=== PATIENT | female | born 1960 | race Native Hawaiian/Other Pacific Islander ===

== ENCOUNTER 2022-02-02 07:39 | Day surgery (SDC) | payer MEDICAID, SELFPAY ==
[2022-02-02] MEDS: LACTATED RINGERS 1000 ML 1,000 ML 100 ML IV (08:00)
[2022-02-02] MEDS: SODIUM CHLORIDE 0.9 % (FLUSH) 10 ML SYRINGE IVF (08:00)
[2022-02-02 08:03] VITALS: BP 130/81; PULSE 86; RESP 16; TEMP 36.6; O2SAT 97; BMI 33.9
--- NOTE | 2022-02-02 08:07 | SUR.PREOP ---
COVID HOME TEST NEGATIVE
[2022-02-02] MEDS: CEFAZOLIN 1 GM inj IVP (09:55)
[2022-02-02] MEDS: BUPIVACAINE 0.25% 30 ML INJECTION (10:15)
--- NOTE | 2022-02-02 10:16 | PM.GSPRC ---
Operative Note Date of procedure: 02/02/22 Type of Procedure: Excision of left posterior shoulder lipoma Procedure Description: After discussing the risks and benefits of the procedure, the patient signed informed consent.? The operative site was marked and the patient was brought to the operating room and placed on the operating table in supine position.? Care was taken to pad the patient's pressure points.?? The patient was then given sedation by anesthesia.?? The operative site was then prepped and draped in the usual sterile fashion.? A time-out was then performed. Local anesthetic was used to anesthetize the surgical field. A horizontal incision was made directly over the subcutaneous mass. Dissection was carried down with electrocautery. A well encapsulated mature lipoma was encountered. This was circumferentially dissected out with blunt dissection and electrocautery. The mass was removed in its entirety and sent off to pathology. The mass measured 7.5 x 5.5 x 3 cm in size. Hemostasis was assured with electrocautery. The incision was closed in layers with interrupted 3 0 Vicryl and running 4-0 Monocryl stitch. ? Sterile dressings were then applied. ? The patient was then woken and transported to the recovery area in stable condition. ? The patient tolerated the procedure well. Findings: Large lipomatous mass of the left posterior shoulder measuring 7.5 x 5.5 x 3 cm in size. Anesthesia: MAC and local Surgeon: Dulce Maria Braun MD Estimated blood loss (mL): 2 Condition: stable Disposition: same day
[2022-02-02 10:25] VITALS: BP 117/72; PULSE 65; RESP 16; TEMP 36.4; O2SAT 99
[2022-02-02 10:30] VITALS: BP 115/73; PULSE 66; RESP 16; O2SAT 98
--- NOTE | 2022-02-02 10:30 | W.ANESCHARGE ---
Anesthesia Charges Start Date/Time Anesthesia Start Date: 02/02/22 Anesthesia Start Time: 07:28 Stop Date/Time Anesthesia Stop Date: 02/02/22 Anesthesia Stop Time: 10:30 Summary Emergency: No
--- NOTE | 2022-02-02 10:34 | W.ANESCHARGE ---
Anesthesia Charges Start Date/Time Anesthesia Start Date: 02/02/22 Anesthesia Start Time: 09:45 Stop Date/Time Anesthesia Stop Date: 02/02/22 Anesthesia Stop Time: 10:29 Summary Emergency: No
[2022-02-02 10:45] VITALS: BP 113/75; PULSE 60; RESP 16; O2SAT 100
[2022-02-02 11:00] VITALS: BP 114/76; PULSE 68; RESP 16; O2SAT 100
--- NOTE | 2022-02-02 11:03 | W.ANESCHARGE ---
Anesthesia Charges Start Date/Time Anesthesia Start Date: 02/02/22 Anesthesia Start Time: 09:45 Stop Date/Time Anesthesia Stop Date: 02/02/22 Anesthesia Stop Time: 10:29 Summary Emergency: No
== END 2022-02-02 11:42 | disposition home or self-care (01) ==
PROVIDERS: PCP Student in an Organized Health Care Education/Training Program; Visit Provider Surgery
PROC: (CPT 23071; principal; 2022-02-02 09:25)
DX: D17.22 Benign lipomatous neoplasm of skin and subcutaneous tissue of left arm (principal)
CPT/HCPCS: 23071; 00400; 88304; J0690; J1100; J1885; J2250; J2405; J2704; J3010; J3490; J7120

== ENCOUNTER 2022-03-04 08:18 | Day surgery (SDC) | payer MEDICAID, SELFPAY ==
[2022-03-04] MEDS: LACTATED RINGERS 1000 ML 1,000 ML 100 ML IV (09:00)
--- NOTE | 2022-03-04 09:27 | SUR.PREOP ---
Home COVID test negative-confirmed by procedure writer.
[2022-03-04 09:28] VITALS: BMI 34.4
[2022-03-04 09:40] VITALS: BP 143/83; PULSE 71; RESP 16; TEMP 36.6; O2SAT 100
[2022-03-04] MEDS: SODIUM CHLORIDE 0.9 % (FLUSH) 10 ML SYRINGE IVF (09:42)
[2022-03-04] MEDS: CEFAZOLIN 2 GM INJ IVP (11:15)
[2022-03-04] MEDS: BUPIVACAINE 0.25% 30 ML INJECTION (11:22)
--- NOTE | 2022-03-04 11:53 | PM.GSPRC ---
Operative Note Date of procedure: 03/04/22 Type of Procedure: Excision of upper back lipoma Procedure Description: After discussing the risks and benefits of the procedure, the patient signed informed consent.? The operative site was marked and the patient was brought to the operating room and placed on the operating table in supine position.? Care was taken to pad the patient's pressure points.?? The patient was then given sedation by anesthesia.?? The operative site was then prepped and draped in the usual sterile fashion.? A time-out was then performed. Local anesthetic placed into the surgical field. Horizontal incision was made directly over the outlined mass. Dissection was carried down through subcutaneous tissue with cautery. A welling capsulated mature fat was encountered. This was circumferentially dissected out with cautery and blunt dissection. The resulting measurements were 4 x 3 x 2 cm in size. The mass was brought out in pieces. Hemostasis was assured with electrocautery. The wound was gently irrigated. The incision was then closed in layers with interrupted 3 0 Vicryl and running 4-0 Monocryl stitch. ? Sterile dressings were then applied. ? The patient was then woken and transported to the recovery area in stable condition. ? The patient tolerated the procedure well. Findings: Upper back lipoma Surgeon: Dulce Maria Braun MD Estimated blood loss (mL): 5 Condition: stable Disposition: same day
[2022-03-04 11:56] VITALS: BP 102/57; PULSE 61; RESP 16; TEMP 36.3; O2SAT 93
[2022-03-04 12:00] VITALS: BP 104/65; PULSE 59; RESP 16; O2SAT 98
--- NOTE | 2022-03-04 12:00 | W.ANESCHARGE ---
Anesthesia Charges Start Date/Time Anesthesia Start Date: 03/04/22 Anesthesia Start Time: 11:04 Stop Date/Time Anesthesia Stop Date: 03/04/22 Anesthesia Stop Time: 11:58 Summary Emergency: No
[2022-03-04 12:15] VITALS: BP 118/81; PULSE 63; RESP 16; O2SAT 99
[2022-03-04 12:30] VITALS: BP 122/84; PULSE 67; RESP 16; O2SAT 98
--- NOTE | 2022-03-04 12:34 | W.ANESCHARGE ---
Anesthesia Charges Start Date/Time Anesthesia Start Date: 03/04/22 Anesthesia Start Time: 11:04 Stop Date/Time Anesthesia Stop Date: 03/04/22 Anesthesia Stop Time: 11:58 Summary Emergency: No
[2022-03-04 12:45] VITALS: BP 107/75; PULSE 67; RESP 16; O2SAT 98
== END 2022-03-04 13:46 | disposition home or self-care (01) ==
PROVIDERS: PCP Student in an Organized Health Care Education/Training Program; Visit Provider Surgery
PROC: (CPT 21931; principal; 2022-03-04 10:15)
DX: D17.1 Benign lipomatous neoplasm of skin and subcutaneous tissue of trunk (principal)
CPT/HCPCS: 21931; 00300; 00400; 88305; J0690; J2704; J3010; J3490; J7120

== ENCOUNTER 2023-09-05 06:02 | Day surgery (SDC) | payer MEDICAID, SELFPAY ==
[2023-09-05] VITALS (17 sets, daily range): BP systolic 107–159; BP diastolic 69–96; PULSE 56–84; RESP 14–16; TEMP 36.1–36.6; O2SAT 93–100; BMI 37.8
[2023-09-05] MEDS: LACTATED RINGERS 1000 ML 1,000 ML 100 ML IV (05:50)
--- OUTSIDE RECORDS SUMMARY | 2023-09-05 06:06 | XMS_ITS | Clinical Summary ---
Author Organization [facility] Address [place], [place] [address] Care Team Providers Care Desktop Publisher Name Role Phone Sera Doyle Primary Care Provider [phone] Allergies Active Allergy Reactions Criticality Noted Date Comments Lisinopril Cough Medium 12/08/2021 Medications Medication Sig Dispensed Refills Start Date End Date Status durable medical equipment (DME)Indications:Heel spur, right [id number] Plantar fasciitis Night Splint, Medium 1 Each 01/26/2022 Active cetirizine (ZYRTEC) 10 mg tabletIndications:Mos jose bite, initial encounter Take 1 Tablet (10 mg) by mouth once daily. 90 Tablet 09/06/2022 Active hydrocortisone 1 % creamIndications:Mosq uito bite, initial encounter Apply topically to affected area(s) two times daily. 26 g 09/06/2022 Active amLODIPine (NORVASC) 10 mg tabletIndications:Ess ential hypertension TAKE 1 TABLET (10 MG) BY MOUTH ONCE DAILY. 90 Tablet 2 11/23/2022 Active Active Problems Problem Noted Date Diagnosed Date Arthritis of right knee 02/18/2023 Right knee pain 02/18/2023 ASCUS of cervix with negative high risk HPV 04/2022 Overview: 06/2022 ASCUS/HPV negative. Plan: Pap/HPV due 06/2025. Steatosis of liver 08/14/2020 Sciatica 07/04/2020 Degeneration of Achilles tendon 08/06/2019 Bone spur of ankle 08/06/2019 Hyperlipidemia 12/26/2018 Essential hypertension 12/26/2018 Allergic rhinitis 12/26/2018 Encounters Date Type Department Care Team Description 09/04/2023 Travel 08/30/2023 3:15 PM CDT Preop Visit [facility] [address] [place] [address] Sera Doyle PA Preoperative Exam (Ostectomy right calcaneus with Achilles tendon repair ??Procedure Location: Right ??90 minutes SDS General with popliteal block/Dr. French/[facility] ) 08/30/2023 Travel from Last 3 Months Immunizations Name Administration Dates Next Due COVID-19 Vaccine Spikevax (M oderna 50mcg/0.5mL) 12YO+ [id number] Formula PF 03/18/2023 Influenza, IIV4 03/18/2023,12/22/2021 Tdap 06/29/2022 Zoster (Shingrix-RZV, recombinant) 06/29/2022, Family History Medical History Relation Name Comments Heart failure Father Hypertension Father Cancer-breast Maternal Aunt Cancer-breast Mother Cancer-breast Other Mat. First Cousin Cancer-ovarian No Family History Relation Name Status Comments Brother 1 Madi Alive Brother 2 [place] Alive Father Maternal Aunt Mother Other Mat. First Cousin Sister 1 Gabriela Alive Sister 2 Josette Alive Sister 3 Jennifer Alive Social History Tobacco Use Types Packs/Day Years Used Date Smoking Tobacco: Never Smokeless Tobacco: Never Tobacco Cessation:Counseling Given: Yes Alcohol Use Standard Drinks/Week Comments Yes 0 (1 standard drink = 0.6 oz pur e alcohol) occasionally PHQ-2 Answer Date Recorded PHQ-2 TOTAL SCORE 0 11/24/2022 Social Connections Answer Date Recorded Frequency of Communication with Friends and Fami ly 0 08/30/2023 Financial Resource Strain Answer Date R ecorded Difficulty of Paying Living Expenses 3 08/30/2023 Difficulty of Paying Living Expenses Not on file 08/30/2023 Food Insecurity Answer Date Recorded Worried About Running Out of Food in the Last Ye ar 1 08/30/2023 Transportation Needs Answer Date Record ed Lack of Transportation (Medical) 1 08/30/2023 Housing Stability Answer Date Recorded Unable to Pay for Housing in the Last Year 1 08/30/2023 Sex and Gender Information Value Date Recorded Sex Assigned at Not on file Gender Identity Not on file Sexual Orientation Not on file Obstetrics History Para Term AB IAB SAB Ectopic Multiple Livin g Live Births 4 Last Filed Vital Signs Vital Sign Reading Time Taken Comments Blood Pressure 130/82 08/30/2023 3:00 PM CDT rec heck Pulse 96 08/30/2023 2:53 PM CDT Temperature 36.1 ??C (97 ??F) 08/30/2023 2:53 PM CDT Respiratory Rate 16 08/30/2023 2:53 PM CDT Oxygen Saturation 96% 08/30/2023 2:53 PM CDT Inhaled Oxygen Concentration - - Weight 90.7 kg (200 lb) 08/30/2023 2:53 PM CDT Height 157 cm (5' 1.81) 08/30/2023 2:53 PM CDT Body Mass Index 36.8 08/30/2023 2:53 PM CDT Plan of Treatment Upcoming Encounters Date Type Department Care Team (Late st Contact Info) Description 09/05/2023 7:00 AM CDT Office Visit [facility] at [address] [id number] Marcos French DPM [address] [place] [address] 09/07/2023 9:00 AM CDT Office Visit [facility] [address] [place] [address] Marcos French DPM [address] [place] [address] 09/21/2023 9:00 AM CDT Office Visit [facility] [address] [place] [address] Marcos French DPM [address] [place] [address] Health Maintenance Due Date Last Done Comments Mammogram for age 45-75 12/16/2022 12/16/2021 Depression screening for age 12+ 11/25/2023 11/24/2022, 11/24/2022, 12/08/2021 Influenza for age 50-64 12/04/2023 03/18/2023, 12/22 BMI (ht and wt on same day) for age 18+ 08/29/2024 08/30/2023, 06/29/2022, 12/23/2021, Additional history exists Pap test for age 21-65 06/29/2025 06/29/2022, 2022 Lipids for age 45-75 06/30/2027 06/29/2022 Colonoscopy through age 75 09/02/202909/02 (Completed outside of [facility]) Tetanus booster 06/29/2032 06/29/2022 HIV for age 15-65 Completed 06/29/2022 Hepatitis C screening for age 18-79 Completed 06/29/2022 Tdap Completed 06/29/2022 Zoster (shingles) series for age 50+ Completed 06/29/2022, 12/30/2021 COVID-19 vaccine series Completed 03/18/2023, 01/28 Pneumococcal series for age 6-64 Aged Out No longer eligible based on patient's age to complete this topic Procedures Procedure Name Priority Date/Time Associated Diagnosis Comments LC HIV-1/O/2, 4TH GENERATION Routine 06/29/2022 11:10 AM CDT Encounter for screening for human immunodeficiency virus (HIV) LC HCV ANTIBODY RFX TO QUANT PCR Routine 06/29/2022 11:10 AM CDT Encounter for hepatitis C screening test for low risk patient LC LIPID PANEL AND CHOL/HDL RATIO Routine 06/29/2022 11:10 AM CDT Lipid screening CORPORATE GIVING MANAGER THIN PREP PAP SCREEN IMAGED Routine 06/29/2022 10:45 AM CDT Screening for malignant neoplasm of cervix XR MAMMO BILAT SCREENING Routine 12/16/2021 3:18 PM CDT Visit for screening mammogram from Last 3 Months or Most Recently Relevant to Health Maintenance Results * (ABNORMAL) LC LIPID PANEL AND CHOL/HDL RATIO (06/29/2022 11:10 AM CDT) [facility] Cholesterol, Total 247(H) 100 - 199 mg/dL 07/01/2022 9:10 AM [facility] ([facility]) Triglycerides 89 0 - 149 mg/dL 07/01/2022 9:10 AM T [facility] ([facility]) HDL Cholesterol 78 >39 mg/dL 9:10 AM [facility] ([facility]) VLDL Cholesterol Williams 15 5 - 40 mg/dL 07/01/2022 9:10 AM [facility] ([facility]) LDL Chol Calc ([facility]) 154(H) 0 - 99 mg/dL 07/01/2022 9:10 AM [facility] ([facility]) T. Chol/HDL Ratio 3.2 0.0 - 4.4 ratio 07/01/2022 9:10 AM [facility] ([facility]) Comment: ?T. Chol/HDL Ratio ?Men ??Women ?1/2 Avg.Risk ??3.4 ?3.3 ?Avg.Risk ??5.0 ?4.4 ? 2X Avg.Risk ??9.6 ?7.1 ? 3X Avg.Risk 23.4 ?? 11.0 Blood BLOOD SPECIMEN / Unknown Venipuncture / Unknown 06/29/2022 11:10 AM CDT 06/29/2022 11:11 AM CDT Narrative [facility] ([facility]) - 07/01/2022 9:10 AM CDT Performed at: ??[address] ??[id number] Lab Nurse: Eddie Calderon MD, Phone: ??[phone] Sera NANCE SEND OUTS Performing Organization Address [facility] de Phone Number [facility] ([facility]) [address] [place] [address], * LC HCV ANTIBODY RFX TO QUANT PCR (06/29/2022 11:10 AM CDT) HCV Ab Non Reactive Non Reactive 07/01/2022 10:06 PM CDT [facility] ([facility]) Blood BLOOD SPECIMEN / Unknown Venipuncture / Unknown 06/29/2022 11:10 AM CDT 06/29/2022 11:11 AM CDT Narrative [facility] ([facility]) - 07/01/2022 10:06 PM CDT Performed at: ??[address] ??[id number] Lab Nurse: Eddie Calderon MD, Phone: ??[phone] [facility] Performing Organization Address [facility] Co de Phone Number [facility] ([facility]) [address] [place] [address] * LC HIV-1/O/2, 4TH GENERATION (06/29/2022 11:10 AM CDT) [facility] HIV Scr 4th Gen Non Reactive Non Reactive 07/02/2022 2:07 AM CDT [facility] ([facility]) Comment: HIV Negative HIV-1/HIV-2 antibodies and HIV-1 p24 antigen were NOT detected. There is no laboratory evidence of HIV infection. Blood BLOOD SPECIMEN / Unknown Venipuncture / Unknown 06/29/2022 11:10 AM CDT 06/29/2022 11:11 AM CDT Narrative [facility] ([facility]) - 07/02/2022 2:07 AM CDT Performed at: ??01 - [facility] [place], [place] ??[id number] Lab Nurse: Eddie Calderon MD, Phone: ??[phone] [facility] TEST[facility] ([facility]) [address] [place] [address], * (ABNORMAL) CORPORATE GIVING MANAGER THIN PREP PAP SCREEN IMAGED [[id number]] (06/29/2022 10:45 AM CDT) [facility] Case Report Gynecologic Cytology Report ? Case: [id number] ? Authorizing Provider: ??Sera Doyle PA ?? Collected: ? 06/29/2022 1045 ? Ordering Location: ? [facility] ?? Received: ?06/29/2022 1053 ? Clinic ? First Screen: ?Baccam, Minie ? Pathologist: ? Yarely Bonilla MD ? Specimen: ?CORPORATE GIVING MANAGER ThinPrep Vial Screening, Cervical ? 07/27/2022 11:18 AM CDT [facility]- [facility] LAB[facility] INTERPRETATION/ RESULT ATYPICAL SQUAMOUS CELLS OF UNDETERMINED SIGNIFICANCE (ASCUS)(A) (none) 07/27/2022 11:18 AM CDT [facility] IMEN ADEQUACY Satisfactory for evaluation Endocervical component present 07/27/2022 11:18 AM CDT [facility]- ENTRAL LABORATORY HPV REQUEST HPV and PAP 07/27/2022 11:18 AM CDT [facility]-C ENTRAL LABORATORY Date of LMP Unknown 07/27/2022 11:18 AM CDT [facility]-C ENTRAL LABORATORY Last Pap Date Unknown 07/27/2022 11:18 AM CDT [facility]-C ENTRAL LABORATORY Last Pap Result First Pap/Unknown 11:18 AM CDT [facility]- [facility] Abnormal Pap or Page Bx in last 5 years No 07/27/2022 11:18 AM CDT [facility] Menstrual Status Postmenopausal 07/27/2022 11:18 AM CDT [facility] Page Bx Done Today No 07/27/2022 11:18 AM CDT [facility] Additional Information None given 07/27/2022 11:18 AM CDT [facility] Comment: Cytology is screened at [facility] - [address], [place] [address] and [facility] - [address], [place] [address] and [facility] - [address] [place] [address] Interpreted at [facility] - [address], [place] [address] Automated Review Successful 07/27/2022 11:18 AM CDT [facility] Comment:Specimen processed s uccessfully by automated leather softener device, ThinPrep Imaging System, [employer] ANCILLARY TESTING CORPORATE GIVING MANAGER HPV Ordered, Please see separate report 07/27/2022 11:18 AM CDT [facility] Note The pap test is a screening technique, not a diagnostic procedure. It is used primarily to screen for squamous cancers and precursor lesions. Published studies have shown that it is subject to both false negative and false positive results. The pap test should not be used as the sole means to diagnose or exclude pre-malignant and malignant lesions. 07/27/2022 11:18 AM CDT [facility] Other (Cervical) Non-Blood / Unknown 06/29/2022 10:45 AM CDT 06/29/2022 10:53 AM CDT Sera NANCE PATHOLOGY/CYTOLOG Y [facility] [address] [place] [address], [place] * XR MAMMO BILAT SCREENING (12/16/2021 3:18 PM CDT) Anatomical Region Laterality Modality BREASTS, Breast Left, Breast Right Bilateral Mammography Impressions 12/17/2021 3:28 PM CDT ??There is no radiographic evidence for malignancy. ??Recommend annual mammograms. MAMMOGRAM ASSESSMENT: ??ACR 1 Negative PATIENTS: You will also receive a letter with your examination results in an easy to read format. ??If you have questions about your results, please contact your referring provider. Narrative 12/17/2021 3:28 PM CDT For Patients: As a result of the Cures Act, medical imaging exams and procedure reports are released immediately into your electronic medical record. You may view this report before your referring provider. If you have questions, please contact your health care provider. XR MAMMO BILAT SCREENING [[id number]] CLINICAL HISTORY: ??This is an asymptomatic 61 y.o. patient. INDICATION FOR EXAM: Mammogram Screening. TECHNIQUE: CC & MLO views were obtained. ??This study was evaluated with the assistance of Computer-Aided Detection. COMPARISON FILM: This is a baseline study. ? FINDINGS: ??The breasts have scattered areas of fibroglandular density. There are no dominant masses, suspicious micro calcifications or areas of architectural distortion. Sera NANCE MAMMO from Last 3 Months or Most Recently Relevant to Health Maintenance Care Teams Desktop Publisher Relationship Specialty Start Date End Date Sera Doyle PA [address] [place] [address] PCP - General Physician Stitching Machine Feeder Or Offbearer 12/21/21
[2023-09-05] MEDS: SODIUM CHLORIDE 0.9 % (FLUSH) 10 ML SYRINGE IVF (06:33)
[2023-09-05] MEDS: fentaNYL 100 MCG/2 ML inj IVP (07:01)
[2023-09-05] MEDS: MIDAZOLAM HCL 1 MG/ML inj IVP (07:01)
--- NOTE | 2023-09-05 07:06 | SUR.PREOP ---
TIME?OUT:?0700 PT/RN/MDA?VERIFICATION?OF?SURGICAL?SITE Right Foot,?PROCEDURE Nerve Block,?AND?CONSENT OBTAINED?PRIOR?TO?INVASIVE?PROCEDURE.
--- NOTE | 2023-09-05 07:15 | CRLHL7_ITS ---
For Patients: As a result of the Cures Act, medical imaging exams and procedure reports are released immediately into your electronic medical record. You may view this report before your referring provider. If you have questions, please contact your health care provider. Indication: Right Ostectomy, Calcaneus w/Achilles Tendon Repair Technique: Two fluoroscopic images of the right calcaneus. Fluoroscopic time 8.7 seconds. IMPRESSION: Fluoroscopic guidance for right Achilles tendon repair and calcaneal ostectomy. Dictated by Chase South MD @ 09/05/2023 9:08:48 AM (Electronically Signed)
[2023-09-05] MEDS: CEFAZOLIN 2 GM INJ IVP (07:44)
--- NOTE | 2023-09-05 07:54 | W.PM.NB ---
Nerve Block Nerve Block Time Seen by Provider: 07:07 Date Seen: 09/05/23 Type of block requested by surgeon for post-operative analgesia: popliteal Side: right Time out performed: Yes Verification of patient name: Yes Verification of date of : Yes Site marking: site marked Name of person performing procedure: Jose Alejandro Continuous monitoring Was continuous monitoring of O2 sat, B/P, potline monitor, recorded every 15 minutes?: Yes Procedure Checklist: sterile prep, needles and gloves Ultrasound guided. Images saved: Yes Medications given in 5ml increments after negative aspiration: Marcaine %: 0.5 mL: 25 Patient tolerated procedure well: Yes Additional comments: Needle noted adjacent to nerve Block Charges Block Charge (with Pro Fee): Sciatic Nerve Use of Ultrasound Machine for Block: Yes- US Guidance/pain block
--- NOTE | 2023-09-05 07:55 | W.ANESCHARGE ---
Anesthesia Charges Start Date/Time Anesthesia Start Date: 09/05/23 Anesthesia Start Time: 07:25 Stop Date/Time Anesthesia Stop Date: 09/05/23 Anesthesia Stop Time: 09:20
[2023-09-05] MEDS: BUPIVACAINE 0.25% 30 ML INJECTION (09:00)
--- NOTE | 2023-09-05 09:20 | W.ANESCHARGE ---
Anesthesia Charges Start Date/Time Anesthesia Start Date: 09/05/23 Anesthesia Start Time: 07:25 Stop Date/Time Anesthesia Stop Date: 09/05/23 Anesthesia Stop Time: 09:20
--- NOTE | 2023-09-05 09:25 | W.PODPROC_ITS ---
Date of Procedure: 09/05/23 Surgeon: Marcos French DPM Pre-op Diagnosis: 1. Calcific Achilles tendinitis right 2. Posterior calcaneal bone spur right Post-op Diagnosis: 1. Calcific Achilles tendinitis right 2. Posterior calcaneal bone spur right Type of Procedure: Calcaneal ostectomy with Achilles tendon repair right Indications: Patient has had ongoing pain at the Achilles tendon insertion with bony spurring. She has elected surgical correction. I discussed the procedure, recovery, expectation potential complications. These include but are not limited to: Poor wound healing, infection, potential need for future surgery, continued pain, swelling, deep venous thrombosis, pulmonary embolism and possible . She understands risks written consent was obtained. Site marked. Procedure Description: Patient brought the operating room placed under general anesthesia. She had a preoperative popliteal block by Anesthesia. She was then rolled into a prone position on the operating table and padded appropriately. The right limb was prepped and draped in a sterile fashion. Standard time-out protocol followed. The right limb was exsanguinated the thigh tourniquet inflated to 300 mm Hg. Linear incisions made over the midline of the Achilles tendon at its insertion. Incision was carried down through skin subcutaneous tissues. Paratenon was incised and reflected. Achilles tendon was then incised along the midline. The bone spur was identified and the Achilles tendon was reflected medial and lateral. Abnormal portions of the Achilles tendon were debrided. The bone spur was then resected using a rongeur, sagittal saw and power rasp. The posterior superior tubercle was also removed. Wound was thoroughly irrigated normal sterile saline. C-arm confirmed adequate resection of the spur area. 4.75 SwiveLock anchor x2 placed dorsal posterior calcaneus. Suture was passed through the medial and lateral halves of the tendon. The Achilles medial and lateral slips was reapproximated with 3-0 Vicryl. FiberTape was then tied down both medial and lateral anchor in the Achilles back onto the calcaneus. Two additional 4.75 SwiveLock anchors were placed inferior to the tendon attachment. One FiberTape from each of the superior anchors was brought together and tensioned appropriately. The Achilles was now fully reattached. Paratenon was repaired with 4-0 Vicryl. Subcutaneous tissues reapproximated 4-0 Monocryl and skin closed with 4-0 Prolene. 10 mL of 0.25% bupivacaine plain injected around the incision site. Sterile dressing was then applied. She was placed in well- padded posterior splint in plantar flexion. She was transferred from OR to PACU vital signs stable and vascular status intact to the right lower extremity. She will be discharged per Anesthesia. She was given written postoperative instructions. She is nonweightbearing with crutches. She is given oxycodone for pain. She will follow-up 2 days. Complications: None apparent Anesthesia: GETA, regional and local Hemostasis: thigh Estimated blood loss (mL): 2 Implants: Arthrex 4.75 SwiveLock anchor x4 Specimens: none sent Disposition: PACU
== END 2023-09-05 11:45 | disposition home or self-care (01) ==
LOC: OR 06:04
PROVIDERS: PCP Student in an Organized Health Care Education/Training Program; Visit Provider Podiatrist
PROC: (CPT 28300; principal; 2023-09-05 07:15)
PROC: (CPT 27650; 2023-09-05 07:15)
DX: M65.271 Calcific tendinitis, right ankle and foot (principal); M77.31 Calcaneal spur, right foot; G89.18 Other acute postprocedural pain
CPT/HCPCS: 27650; 28118; 01472; 64445; 73630; 76000; 76942; 97116; 97161; A4580; C1713; J0330; J0665; J0690; J1100; J1630; J1885; J2250; J2405; J2704; J2710; J3010; J7120

== ENCOUNTER 2023-12-01 08:45 | Outpatient (RCR) | payer MEDICAID, SELFPAY | END 2024-03-12 15:58 | disposition home or self-care (01) | PROVIDERS: PCP Student in an Organized Health Care Education/Training Program; Visit Provider Podiatrist | DX: M65.28 Calcific tendinitis, other site (principal); Z98.890 Other specified postprocedural states; M25.571 Pain in right ankle and joints of right foot; M62.81 Muscle weakness (generalized); Z51.89 Encounter for other specified aftercare | CPT/HCPCS: 97110; 97116; 97140; 97161 ==

== ENCOUNTER 2024-04-30 14:30 | Outpatient (RCR) | payer MEDICAID, SELFPAY | END 2024-06-20 13:33 | disposition home or self-care (01) | PROVIDERS: PCP Student in an Organized Health Care Education/Training Program; Visit Provider Podiatrist | DX: M76.62 Achilles tendinitis, left leg (principal); M67.874 Other specified disorders of tendon, left ankle and foot; R26.2 Difficulty in walking, not elsewhere classified; M25.572 Pain in left ankle and joints of left foot; M62.81 Muscle weakness (generalized); Z51.89 Encounter for other specified aftercare | CPT/HCPCS: 97110; 97140; 97161 ==